=== PATIENT | female | born 1975 | race Caucasian/White ===

== ENCOUNTER 2022-02-04 07:42 | Day surgery (SDC) | payer BC ==
[2022-02-02 13:31] VITALS: BMI 23.6
[2022-02-04] MEDS ORDERED: PROPOFOL 20 ML ONE ×4 (08:02)
[2022-02-04 09:06] VITALS: PULSE 45; TEMP 97.2
[2022-02-04 09:21] VITALS: BP 110/59
== END 2022-02-04 10:31 | disposition home or self-care (01) ==
LOC: FASU-ENDO 07:42
PROVIDERS: ATTEND Internal Medicine Gastroenterology
PROC: 0DJD8ZZ Inspection of Lower Intestinal Tract, Via Natural or Artificial Opening Endoscopic (ICD-10-PCS; principal; 2022-02-04 08:40)
DX: K64.4 Residual hemorrhoidal skin tags (principal); K92.1 Melena
CPT/HCPCS: 84703